=== PATIENT | female | born 1985 | race African-American/Black ===

== ENCOUNTER 2018-10-29 00:30 | Inpatient (IN) | payer OTHER ==
[2018-10-29] MEDS ORDERED: BUTORPHANOL 1 MG/ML INJ IV PRN (04:30)
[2018-10-29] MEDS ORDERED: CARBOPROST TROME 250 MCG/ML IM PRN (04:30)
[2018-10-29] MEDS ORDERED: PROMETHAZINE 25 MG/ML VIAL IM PRN (04:30)
[2018-10-29] MEDS ORDERED: Ringers Lactate 1,000 ML IV PRN (04:30)
[2018-10-29] MEDS ORDERED: METHYLERGONOVINE 0.2MG/ML AMP IM PRN (04:30)
[2018-10-29 04:59] VITALS: BMI 26.9
[2018-10-29] MEDS ORDERED: Ringers Lactate 1,000 ML IV SCH (05:00)
[2018-10-29] MEDS ORDERED: OXYTOCIN/LR 20 UNIT/1,000 ML BAG IV SCH ×2 (05:00→16:00)
[2018-10-29] MEDS ORDERED: OXYTOCIN/LR 0 UNIT/0 ML BAG IV ONE (05:01)
[2018-10-29] MEDS ORDERED: OXYTOCIN/LR 20 UNIT/1,000 ML BAG IV ONE (05:03)
[2018-10-29 05:19] LABS: Absolute Lymphocytes (CBC) 1.7 K/uL (0.7-4.9); Basophils % 0.4 % (0-1.3); Hematocrit 32.1 % (36.0-45.0); MPV 9.6 fL (7.6-11.3); RBC Red Blood Cell Count 3.78 M/uL (3.86-4.86); Urine Appearance CLOUDY; Urine Bilirubin NEGATIVE (NEG); Urine Blood NEGATIVE (NEG); Urine Color YELLOW; Urine Glucose NEGATIVE (NEG); Urine Protein NEGATIVE (NEG)
[2018-10-29 05:25] LABS: Urine Microscopic Reflex ORDER UMIC
[2018-10-29 05:53] LABS: Urine RBC NONE SEEN /HPF (NONE SEEN)
[2018-10-29 05:54] LABS: Urine Amorphous Sediment 2+ /HPF (NONE SEEN); Urine Bacteria <20 /HPF (<20); Urine Culture Reflex Order NOT NEEDED; Urine Mucus LIGHT /HPF (NONE SEEN)
[2018-10-29] MEDS ORDERED: FENTANYL CITR 100 MCG/2 ML IV ONE (06:08)
[2018-10-29] MEDS ORDERED: ROPIVACAINE HCL 100 ML IV PRN (06:08)
[2018-10-29] MEDS ORDERED: ROPIVACAINE HCL 0.2% 20ML AMP SQ ONE (06:09)
--- NOTE | 2018-10-29 09:10 | PREOPHP ---
Date of Admission: 10/29/2018 33-year-old, 5, para 4, at 39 weeks 1 day, for elective induction. She has had another baby born on Thursday, born on Thursday, 2.5 cm. Baby well applied. Rupture of membranes , clear fluid. Eliot regularly. Rh positive, immune to Rubella. Negative beta strep screen. Requesting epidural when she gets a more active labor. Anticipate delivery later this morning or ea y afternoon. ROBERT/EDWIN Voice ID: [id number]
--- NOTE | 2018-10-29 09:37 | PREOPHP ---
Date of Admission: 10/29/2018 33-year-old, 5, para 4, at 39 weeks 1 day, for elective induction. She has had another baby born on Thursday, this one born on Thursday, 2.5 cm. Baby well applied. Rupture of membranes, clear fluid. Eliot regularly. Rh positive, immune to Rubella. Negative beta strep screen. Requesting epidural when she gets a more active labor. Anticipate delivery later this morning or ear ly afternoon. ROBERT/EDWIN Voice ID: [id number]
[2018-10-29] MEDS ORDERED: Oxycodone HCl/Acetaminophen 1 TAB TAB PO PRN (15:11)
[2018-10-29] MEDS ORDERED: ACETAMINOPHEN 500 MG TAB PO PRN (15:11)
[2018-10-29] MEDS ORDERED: DIPHENHYDRAMINE 25 MG TAB/CAP PO PRN (15:11)
[2018-10-29] MEDS ORDERED: BISACODYL 10 MG RECTAL SUPP RECT PRN (15:11)
[2018-10-29] MEDS ORDERED: IBUPROFEN 200 MG TAB PO PRN (15:11)
[2018-10-29] MEDS ORDERED: DOCUSATE NA/SENNA CONC 1 TAB PO PRN (15:11)
[2018-10-29] MEDS ORDERED: Ringers Lactate 2,000 ML IV ONE (17:03)
[2018-10-29] MEDS: Oxycodone HCl/Acetaminophen 1 TAB TAB PO PRN (20:30)
--- NOTE | 2018-10-30 01:52 | OP ---
Surgeon: Darnell Patricio MD A 33-year-old, 5, para 4, 39 weeks 1 day, Rh positive, immune to Rubella. Negative beta stre p screen for induction. Patient was tested positive during for being an SMA carrier. Spou se was never checked as he was not cooperative. Rupture of membranes at approximately 2.5 cm this mo rning. Clear fluid. Patient went to a more active labor pattern. Stadol 1 mg IV followed by epidur al anesthesia. Second stage of approximately 20 to 25 minutes. Spontaneous vaginal delivery of an e stimated 7-pound male . Nuchal cord x1 loosely. Apgars 9 and 10. No episiotomy. No lacerati on. Schultze delivery of the placenta, which was inspected and noted to be intact and normal. Then, 150 cc or less blood loss. Patient tolerated all procedures well. Final Diagnoses: Term intrauterine , spinal muscular atrophy carrier, negative. DICTATION ENDS HERE. ROBERT/EDWIN Voice ID: [id number] Report ID: [id number]
--- NOTE | 2018-10-30 02:07 | OP ---
Surgeon: Darnell Patricio MD A 33-year-old, 5, para 4, 39 weeks 1 day. Rh positive, immune to Rubella. Negative beta str ep screen. Patient was noted to be an SMA carrier. negative for carrier status. Patient aguirre s signed her a tubal permit, but now she will have to go to [facility] in the period for a tubal if she so desires. 2.5 cm on admission. Rupture of membranes, clear fluid. Stadol IV initially fo llowed by epidural anesthesia. Second stage of 20 to 25 minutes. Spontaneous vaginal delivery of an estimated 7-pound male infant. Nuchal cord x1 loosely. Apgars 9 and 10. No episiotomy. No lacera tion. Schultze delivery of the placenta. Uterus contracted down well. Estimated blood loss 150 cc or less. The patient tolerated all procedures well. Final Diagnoses: Intrauterine gestation, 39 weeks 1 day; spinal muscular atrophy carrier status, hus band negative; epidural anesthesia; nuchal cord x1; vaginal delivery. ROBERT/EDWIN Voice ID: [id number] Report ID: [id number]
[2018-10-30] MEDS: Oxycodone HCl/Acetaminophen 1 TAB TAB PO PRN ×2 (03:45→12:25)
[2018-10-30] MEDS ORDERED: Tdap (Diph,Pertuss(Acell),Tet Vac) 0.5 ML SYR IMVAC ONE (07:44)
[2018-10-30 15:43] VITALS: BP 115/65; TEMP 97.8
[2018-10-31 05:56] LABS: RPR (Rapid Plasma Reagin) NON-REACT (NON-REACT)
--- NOTE | 2018-11-01 09:55 | DS ---
Date of Discharge: 10/30/2018 Summary: 33-year-old, 5, para 4, 39 weeks 1 day, 2.5 cm on admission. Rupture of membranes, clear fluid. Stadol initially during the first stage of labor, and then epidural anesthesia at josephine ent's request. Delivering estimated 7-pound male infant, Apgars 9 and 10. No episiotomy. No lacera tion. Schultze delivery of the placenta, which was inspected and noted to be intact and normal. Les s than 150 cc blood loss. Rh positive, immune to Rubella. Negative beta strep screen. ; afebrile, ambulating and voiding. Lochia is normal. No post epidural problems. Patient requested a nalgesics on dismissal. Tramadol given initially, prescription for 35 was written, this was destroye d and prescription for 15 was given which is more appropriate for vaginal delivery. Tdap offered dur ing her and again today. No post epidural problems. Final Diagnoses: Term intrauterine 39 weeks 1 day, vaginal delivery. ROBERT/EDWIN Voice ID: [id number] Report ID: [id number]
--- NOTE | 2018-11-01 09:58 | PN ---
Patient has her epidural now. She is extremely numb. She is still 4 cm. I have seen no change in t he last hour. She is having contractions every 2 minutes. She is on 20 milliunits of Pitocin. Elizabeth ng some decelerations but nothing looks ominous at this time and still good lbig-rr-asgb variability. Hopefully, we will start seeing more change in the next hour or 2. ROBERT/EDWIN Voice ID: [id number] Report ID: [id number]
--- NOTE | 2018-11-01 09:58 | PN ---
Patient is on 20 milliunits of Pitocin. She has had 1 mg of Stadol. She is 4 cm about 60% effaced, -1 station. She is requesting epidural. She is being hydrated at this point. I think it is a littl e early but we will comply with patient's wishes and call for her epidural at this point. ROBERT/EDWIN Voice ID: [id number] Report ID: [id number]
[2018-11-02 20:40] LABS: HBsAG Nonreactive (Nonreactive)
== END 2018-10-30 19:50 | disposition home or self-care (01) | DRG 807 ==
LOC: 2ND-WC 03:57
PROVIDERS: ADMIT Specialist; ATTEND Specialist
PROC: 10907ZC Drainage of Amniotic Fluid, Therapeutic from Products of Conception, Via Natural or Artificial Opening (ICD-10-PCS; principal; 2018-10-29)
PROC: 10E0XZZ Delivery of Products of Conception, External Approach (ICD-10-PCS; 2018-10-29)
DX: O69.81X0 Labor and delivery complicated by cord around neck, without compression, not applicable or unspecified (principal); Z37.0 Single live birth; Z3A.39 39 weeks gestation of pregnancy; Z23 Encounter for immunization
CPT/HCPCS: 36415; 81003; 81015; 85025; 86592; 86901; 87340; 90471; 90715; J0595; J2210; J2550; J2590; J2795; J3010

== ENCOUNTER 2020-07-22 16:47 | Emergency (ER) | payer OTHER, SELFPAY ==
[2020-07-22] MEDS ORDERED: NA CHLORIDE 0.9% 0 ML ONE (17:45)
[2020-07-22 17:47] LABS: Absolute Lymphocytes (CBC) 1.8 K/uL (0.7-4.9); Basophils % 0.8 % (0-1.3); Hematocrit 41.7 % (36.0-45.0); Lymphocytes % 20.9 % (15.3-44.8); MPV 8.8 fL (7.6-11.3); RBC Red Blood Cell Count 5.04 M/uL (3.86-4.86)
[2020-07-22 18:13] LABS: ALT/SGPT 19 U/L (12-78); Alkaline Phosphatase 46 U/L (45-117); BUN Blood Urea Nitrogen 16 mg/dL (7-18); Bicarbonate 24 mmol/L (21-32); Bilirubin Direct < 0.1 mg/dL (0-0.2); Bilirubin Total 0.4 mg/dL (0.2-1.0); Glucose Level 80 mg/dL (74-106); Lipase 186 U/L (73-393); NT PRO-BNP 20 pg/mL (<125); Protein, Total 7.9 g/dL (6.4-8.2); Sodium Level 142 mmol/L (136-145); Troponin (Emerg Dept Use Only) < 0.02 ng/mL (0.0-0.045)
[2020-07-22 18:15] LABS: AST/SGOT 13 U/L (15-37); Potassium 3.4 mmol/L (3.5-5.1)
[2020-07-22 18:16] LABS: Magnesium 2.1 mg/dL (1.8-2.4)
[2020-07-22 18:34] LABS: Urine Blood 1+ (Negative); Urine Glucose Negative (Negative); Urine Protein Negative (Negative); Urine pH 7.5 (5.0-7.0)
--- NOTE | 2020-07-22 18:40 | ER ---
Nurse's Notes [facility] Name: Gerda Cardoso Age: 35 yrs Sex: Female : 1985 Arrival Date: 07/22/2020 Time: 16:50 Bed 27 Private MD: Diagnosis: Chest pain, unspecified;Hyperventilation;Hypokalemia Presentation: 07/22 17:02 Chief complaint: Patient states: "I was at work and I started feeling having trouble aa5 breathing and my hands and my chest started to tingle and right now I just feel weak, nauseated, and sleepy". Coronavirus screen: At this time, the client does not indicate any symptoms associated with coronavirus-19. Ebola Screen: Patient negative for fever greater than or equal to 101.5 degrees Fahrenheit, and additional compatible Ebola Virus Disease symptoms. Initial Sepsis Screen: Does the patient meet any 2 criteria? No. Patient's initial sepsis screen is negative. Does the patient have a suspected source of infection? No. Patient's initial sepsis screen is negative. Risk Assessment: Do you want to hurt yourself or someone else? Patient reports no desire to harm self or others. Onset of symptoms was July 22, 2020. 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 - Social history:: Smoking status: Reported history of juuling and/or vaping. Screenin:21 Abuse screen: Denies threats or abuse. Denies injuries from another. Nutritional zb screening: No deficits noted. Tuberculosis screening: No symptoms or risk factors identified. Fall Risk None identified. Assessment: 17:21 General: Appears in no apparent distress. Behavior is anxious. Pain: Complains of pain zb in chest Pain radiates to neck Pain currently is 0 out of 10 on a pain scale. Quality of pain is described as pressure, tingling, Pain began 30 min ago. Neuro: Level of Consciousness is awake, alert, obeys commands, Oriented to person, place, time, situation. Cardiovascular: Patient's skin is warm and dry. Respiratory: Airway is patent Respiratory effort is even, unlabored, Respiratory pattern is regular, symmetrical. GI: Reports nausea. Derm: Skin is intact, is healthy with good turgor, Skin is dry, Skin is normal, Skin temperature is warm. Musculoskeletal: Circulation, motion, and sensation intact. Range of motion: intact in all extremities. 18:00 Reassessment: notified MD of patient request for no IV at this time. okayed by ECP. zb 18:35 Reassessment: Patient appears in no apparent distress at this time. Patient and/or zb family updated on plan of care and expected duration. Pain level reassessed. Patient is alert, oriented x 3, equal unlabored respirations, skin warm/dry/pink. Vital Signs: 17:05 BP 144 / 100; Pulse 68; Resp 22 S; Temp 97.7(TE); Pulse Ox 99% on R/A; Weight 58.97 kg aa5 (R); Height 5 ft. 2 in. (157.48 cm) (R); 17:22 BP 128 / 81; Pulse 61; Resp 16; Pulse Ox 100% on R/A; zb 18:34 BP 110 / 75; Pulse 60; Resp 16; Pulse Ox 100% on R/A; zb 19:08 BP 114 / 76; Pulse 58; Resp 16; Pulse Ox 100% on R/A; zb 17:05 Body Mass Index 23.78 (58.97 kg, 157.48 cm) aa5 ED Course: 16:50 Patient arrived in ED. ds1 17:02 Arm band placed on. aa5 17:04 Triage completed. aa5 17:12 Haleigh Colon, MALGORZATA is Primary Nurse. zb 17:19 Tim Baer MD is Attending Physician. jennifer 17:23 Patient has correct armband on for positive identification. Bed in low position. Call zb light in reach. environmental monitoring specialist on. Pulse ox on. NIBP on. Door closed. Noise minimized. 17:23 Patient maintains SpO2 saturation greater than 95% on room air. zb 18:02 XRAY Chest (1 view) In Process Unspecified. EDMS 19:09 No provider procedures requiring assistance completed. Patient did not have IV access zb during this emergency room visit. Administered Medications: 18:06 Not Given (Physician Discretion): NS 0.9% 1000 ml IV at 125 ml/hr continuous zb Outcome: 18:39 Discharge ordered by . jennifer 19:09 Discharged to home ambulatory. zb 19:09 Condition: stable 19:09 Condition: good 19:09 Discharge instructions given to patient, Instructed on discharge instructions, follow up and referral plans. medication usage, Demonstrated understanding of instructions, follow-up care, medications, Prescriptions given X 1. 19:09 Patient left the ED. zb Signatures: Dispatcher [employer] EDNH Tim Baer MD MD cha Sanford, Demi ds1 Katy Hernandez, RN RN aa5 Haleigh Colon RN RN zb
--- NOTE | 2020-07-22 18:40 | EDPHYS ---
Physician Documentation [facility] Name: Gerda Cardoso Age: 35 yrs Sex: Female : 1985 Arrival Date: 07/22/2020 Time: 16:50 Bed 27 Private MD: ED Physician Tim Baer HPI: 07/22 17:49 This 35 yrs old Black Female presents to ER via Wheelchair with complaints of Chest jennifer Pain. 17:49 The patient or guardian reports chest pain that is located primarily in the anterior jennifer chest wall, bilaterally. The pain does not radiate. Associated signs and symptoms: The patient has no apparent associated signs or symptoms. The chest pain is described as squeezing. Duration: The patient or guardian reports a single episode, that is now resolved. Severity of pain: At its worst the pain was mild in the emergency department the pain is unchanged. 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 - Social history:: Smoking status: Reported history of juuling and/or vaping. ROS: 17:50 Constitutional: Negative for fever, chills, and weight loss, Eyes: Negative for injury, jennifer pain, redness, and discharge, ENT: Negative for injury, pain, and discharge, Neck: Negative for injury, pain, and swelling, Cardiovascular: Negative for chest pain, palpitations, and edema, Abdomen/GI: Negative for abdominal pain, nausea, vomiting, diarrhea, and constipation, Back: Negative for injury and pain, : Negative for injury, bleeding, discharge, and swelling, MS/Extremity: Negative for injury and deformity, Skin: Negative for injury, rash, and discoloration, Neuro: Negative for headache, weakness, numbness, tingling, and seizure, Psych: Negative for depression, anxiety, suicide ideation, homicidal ideation, and hallucinations, Allergy/Immunology: Negative for hives, rash, and allergies, Endocrine: Negative for neck swelling, polydipsia, polyuria, polyphagia, and marked weight changes, Hematologic/Lymphatic: Negative for swollen nodes, abnormal bleeding, and unusual bruising. 17:50 Respiratory: Positive for shortness of breath, at rest. Exam: 17:50 Constitutional: This is a well developed, well nourished patient who is awake, alert, jennifer and in no acute distress. Head/Face: Normocephalic, atraumatic. Eyes: Pupils equal round and reactive to light, extra-ocular motions intact. Lids and lashes normal. Conjunctiva and sclera are non-icteric and not injected. Cornea within normal limits. Periorbital areas with no swelling, redness, or edema. ENT: Nares patent. No nasal discharge, no septal abnormalities noted. Tympanic membranes are normal and external auditory canals are clear. Oropharynx with no redness, swelling, or masses, exudates, or evidence of obstruction, uvula midline. Mucous membranes moist. Neck: Trachea midline, no thyromegaly or masses palpated, and no cervical lymphadenopathy. Supple, full range of motion without nuchal rigidity, or vertebral point tenderness. No Meningismus. Chest/axilla: Normal chest wall appearance and motion. Nontender with no deformity. No lesions are appreciated. Cardiovascular: Regular rate and rhythm with a normal S1 and S2. No gallops, murmurs, or rubs. Normal PMI, no JVD. No pulse deficits. Respiratory: Lungs have equal breath sounds bilaterally, clear to auscultation and percussion. No rales, rhonchi or wheezes noted. No increased work of breathing, no retractions or nasal flaring. Abdomen/GI: Soft, non-tender, with normal bowel sounds. No distension or tympany. No guarding or rebound. No evidence of tenderness throughout. Back: No spinal tenderness. No costovertebral tenderness. Full range of motion. Skin: Warm, dry with normal turgor. Normal color with no rashes, no lesions, and no evidence of cellulitis. MS/ Extremity: Pulses equal, no cyanosis. Neurovascular intact. Full, normal range of motion. Neuro: Awake and alert, GCS 15, oriented to person, place, time, and situation. Cranial nerves II-XII grossly intact. Motor strength 5/5 in all extremities. Sensory grossly intact. Cerebellar exam normal. Normal gait. Psych: Awake, alert, with orientation to person, place and time. Behavior, mood, and affect are within normal limits. 17:50 Musculoskeletal/extremity: DVT Exam: No signs of deep vein thrombosis. no pain, no swelling, no tenderness, negative Homans' sign noted on exam, no appreciated bluish discoloration, no erythema, no increased warmth. 17:53 ECG was reviewed by the Attending Physician. [facility] Vital Signs: 17:05 BP 144 / 100; Pulse 68; Resp 22 S; Temp 97.7(TE); Pulse Ox 99% on R/A; Weight 58.97 kg aa5 (R); Height 5 ft. 2 in. (157.48 cm) (R); 17:22 BP 128 / 81; Pulse 61; Resp 16; Pulse Ox 100% on R/A; zb 18:34 BP 110 / 75; Pulse 60; Resp 16; Pulse Ox 100% on R/A; zb 19:08 BP 114 / 76; Pulse 58; Resp 16; Pulse Ox 100% on R/A; zb 17:05 Body Mass Index 23.78 (58.97 kg, 157.48 cm) aa5 MDM: 17:19 Patient medically screened. [facility] 17:50 Differential diagnosis: Anemia Anxiety Reaction CHF exacerbation, abnormal EKG, chest jennifer wall pain, Cholelithiasis gastroesophageal reflux disease (GERD), hiatal hernia, pancreatitis, peptic ulcer disease, pneumothorax, pulmonary embolus, unstable angina, pulmonary edema, Pulmonary Embolism. HEART Score: History: Slightly Suspicious (0), ECG: Normal (0), Age: < or = 45 years (0), Risk Factors: No Risk Factors Known (0), Troponin: < or = 1 x Normal Limit (0), Total Score = 0. The patient's deep vein thrombosis risk score was calculated as follows: Total Score: 0. This patient was found to be at low risk for a deep vein thrombosis by using the Well's assessment criteria Total Score: 0-2 Pts- Low Risk. The patient's pulmonary embolism risk score was calculated as follows: Total Score: 0-2 points. This patient was found to be at low risk for a pulmonary embolism by using the Well's assessment criteria Total Score: 0-2 points. This patient was found to be at low risk for a pulmonary embolism by using the Well's assessment criteria. ISAAC Risk Score: TOTAL SCORE = 0. Immunization status:. Data reviewed: vital signs, nurses notes, lab test result(s), EKG, radiologic studies. Data interpreted: campus monitor: rate is 61 beats/min, rhythm is regular, Pulse oximetry: on room air is 100 %. Test interpretation: by ED physician or midlevel provider: ECG, plain radiologic studies. Counseling: I had a detailed discussion with the patient and/or guardian regarding: the historical points, exam findings, and any diagnostic results supporting the discharge/admit diagnosis, lab results, radiology results, the need for outpatient follow up, for definitive care, a family practitioner. 07/22 17:22 Order name: Basic Metabolic Panel; Complete Time: 18:36 [facility] 07/22 17:22 Order name: CBC with Diff; Complete Time: 18:36 [facility] 07/22 17:22 Order name: LFT's; Complete Time: 18:36 [facility] 07/22 17:22 Order name: Magnesium; Complete Time: 18:36 [facility] 07/22 17:22 Order name: NT PRO-BNP; Complete Time: 18:36 [facility] 07/22 17:22 Order name: Troponin (emerg Dept Use Only); Complete Time: 18:36 [facility] 07/22 17:22 Order name: XRAY Chest (1 view) [facility] 07/22 17:22 Order name: EKG; Complete Time: 17:22 [facility] 07/22 17:22 Order name: Cardiac monitoring; Complete Time: 17:24 [facility] 07/22 17:22 Order name: D-Dimer; Complete Time: 18:36 [facility] 07/22 17:22 Order name: Lipase; Complete Time: 18:36 [facility] 07/22 18:33 Order name: Urine Dipstick-Ancillary; Complete Time: 18:36 [facility] 07/22 18:38 Order name: Urine --Ancillary (enter results) 07/22 17:22 Order name: EKG - Nurse/Tech; Complete Time: 17:23 [facility] 07/22 17:22 Order name: IV Saline Lock; Complete Time: 17:24 [facility] 07/22 17:22 Order name: Labs collected and sent; Complete Time: 17:24 [facility] 07/22 17:22 Order name: O2 Per Protocol; Complete Time: 17:23 [facility] 07/22 17:22 Order name: O2 Sat Monitoring; Complete Time: 17:23 [facility] 07/22 17:22 Order name: Urine Dipstick-Ancillary (obtain specimen); Complete Time: 18:37 [facility] 07/22 17:22 Order name: Urine Test (obtain specimen); Complete Time: 18:37 [facility] 07/22 18:38 Order name: PO challenge: juice; Complete Time: 19:08 [facility] EC:53 Rate is 70 beats/min. LA interval is shortened at 108 msec. T waves are Normal. [facility] Clinical impression: NSR w/ Non-specific ST/T Changes and No evidence of ischemia. Administered Medications: 18:06 Not Given (Physician Discretion): NS 0.9% 1000 ml IV at 125 ml/hr continuous zb Disposition: 07/22/20 18:39 Discharged to Home. Impression: Chest pain, unspecified, Hyperventilation, Hypokalemia. - Condition is Stable. - Discharge Instructions: Nonspecific Chest Pain, Potassium Content of Foods, Hyperventilation, Nonspecific Chest Pain, [id number], Hypokalemia. - Prescriptions for Hydroxyzine HCl 25 mg Oral Tablet - take 1 tablet by ORAL route every 6 hours As needed; 20 tablet. - Medication Reconciliation Form, Thank You Letter, Antibiotic Education, Prescription Opioid Use, Work release form form. - Follow up: Private Physician; When: 2 - 3 days; Reason: Recheck today's complaints, Continuance of care, Re-evaluation by your physician. - Problem is new. - Symptoms have improved. Signatures: Dispatcher [employer] EDMS Tim Baer MD MD cha Calderon, Audri RN RN aa5 Haleigh Colon RN RN zsarina Corrections: (The following items were deleted from the chart) 19:09 18:39 07/22/2020 18:39 Discharged to Home. Impression: Chest pain, unspecified; zb Hyperventilation; Hypokalemia. Condition is Stable. Discharge Instructions: Nonspecific Chest Pain, Hyperventilation, Nonspecific Chest Pain, Mxid-bt-Luoy. Prescriptions for Hydroxyzine HCl 25 mg Oral Tablet - take 1 tablet by ORAL route every 6 hours As needed; 20 tablet. and Forms are Medication Reconciliation Form, Thank You Letter, Antibiotic Education, Prescription Opioid Use. Follow up: Private Physician; When: 2 - 3 days; Reason: Recheck today's complaints, Continuance of care, Re-evaluation by your physician. Problem is new. Symptoms have improved. [facility]
--- NOTE | 2020-07-22 18:41 | RAD REPORT ---
EXAM DESCRIPTION: Rudy Single View07/22/2020 6:02 pm CLINICAL HISTORY: Chest pain COMPARISON: none FINDINGS: The lungs appear clear of acute infiltrate. The heart is normal size IMPRESSION: No acute abnormalities displayed
[2020-07-22 19:16] VITALS: TEMP 97.7
[2020-07-22 19:17] VITALS: O2SAT 100
[2020-07-22 19:20] VITALS: BP 114/76
[2020-07-27] MEDS ORDERED: ACETAMINOPHEN 500 MG TAB ONE (21:40)
== END 2020-07-22 19:09 | disposition home or self-care (01) ==
LOC: ER 16:47
DX: R06.4 Hyperventilation (principal); E87.6 Hypokalemia; Z88.5 Allergy status to narcotic agent
CPT/HCPCS: 36415; 71045; 80048; 80076; 81003; 81025; 83690; 83735; 83880; 84484; 85025; 85379; 93005; 99284; J7030